=== PATIENT | male | born 1985 | race African-American/Black ===

== ENCOUNTER 2016-07-11 01:23 | Emergency (ER) | payer MEDICARE, OTHER ==
[~2016-07-11] VITALS: Ht 175.3 cm; Wt 88.0 kg
[~2016-07-11 01:23] MED LIST: BENZ100 PO; CEPH-460 PO; IPRA0.03 EACH NARE; PROM25SU8 PO; SUDA30TA2 PO
[2016-07-11 01:24] VITALS: BP 132/79; PULSE 85; RESP 16; TEMP 98.2; O2SAT 97
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
[2016-07-11] MEDS ORDERED: NYST100084 TOPICAL (02:16)
[2016-07-11] MEDS ORDERED: BACT800T5 PO (02:16)
== END 2016-07-11 02:23 | disposition home or self-care (01) ==
LOC: NEPB 01:23
DX: R21 Rash and other nonspecific skin eruption (principal); L29.9 Pruritus, unspecified; Z72.0 Tobacco use; Z87.09 Personal history of other diseases of the respiratory system
CPT/HCPCS: 99283

== ENCOUNTER 2016-11-20 22:08 | Emergency (ER) | payer MEDICARE, OTHER ==
[~2016-11-20] VITALS: Ht 175.3 cm; Wt 87.0 kg
[~2016-11-20 22:08] MED LIST changes: +BACT800T5 PO; +NYST100084 TOPICAL
[2016-11-20 22:10] VITALS: BP 127/75; PULSE 66; RESP 15; TEMP 97.6; O2SAT 100
--- NOTE | 2016-11-20 22:46 | PD ---
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 Vital signs reviewed. Seen at triage desk. Awaiting bed placement. Data Data Last Documented VS Vital Signs Date Time Temp Pulse Resp B/P Pulse Ox O2 Delivery O2 Flow Rate FiO2 11/20/16 22:10 97.6 66 15 127/75 100 Room Air MDM Medical Record Reviewed: Yes Supervised Visit with IVELISSE: Mau Oconnell Nov 20, 2016 22:46
[2016-11-20] MEDS ORDERED: MUPI2OIN TOPICAL (23:38)
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
[2016-11-20] MEDS ORDERED: MUPIROCIN 2% OINT 22 GM TUBE TOPICAL ONE (23:45)
[2016-11-20] MEDS ORDERED: DEXAMETHASONE SOD PHOS 4 MG/ML VIAL IM ONE (23:45)
== END 2016-11-21 00:09 | disposition home or self-care (01) ==
LOC: NEPK 22:08
DX: L01.00 Impetigo, unspecified (principal)
CPT/HCPCS: 96372; 99284; J1100

== ENCOUNTER 2017-01-29 14:01 | Emergency (ER) | payer MEDICARE, OTHER ==
[~2017-01-29] VITALS: Ht 175.3 cm; Wt 82.0 kg
[~2017-01-29 14:01] MED LIST changes: +MUPI2OIN TOPICAL
[2017-01-29 14:02] VITALS: BP 122/77; PULSE 72; RESP 16; TEMP 98.6; O2SAT 98
[2017-01-29 14:08] VITALS: PULSE 73
[2017-01-29] MEDS ORDERED: CEPH-460 PO (16:09)
[2017-01-29] MEDS ORDERED: IBUP800T23 PO (16:17)
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
== END 2017-01-29 16:28 | disposition home or self-care (01) ==
LOC: NEPK 14:01
DX: S61.012A Laceration without foreign body of left thumb without damage to nail, initial encounter (principal); Z72.0 Tobacco use; Z87.09 Personal history of other diseases of the respiratory system; W27.8XXA Contact with other nonpowered hand tool, initial encounter
CPT/HCPCS: 99283